=== PATIENT | female | born 1980 | race African-American/Black ===

== ENCOUNTER 2022-01-28 13:07 | Outpatient (CLI) | payer MEDICARE, OTHER | END 2022-01-28 13:08 | disposition home or self-care (01) | LOC: DTY/OP 13:07 | PROVIDERS: ATTEND Surgery | DX: E66.01 Morbid (severe) obesity due to excess calories (principal) | CPT/HCPCS: 97802 ==

== ENCOUNTER 2022-04-10 10:55 | Outpatient (CLI) | payer OTHER, MEDICAID ==
[2022-04-10 12:39] LABS: #Eosinphils 0.1 10x3/uL (0.0-0.5); #Monocytes 0.3 10x3/uL (0.0-1.1); #Neutrophils 2.4 10x3/uL (1.5-8.4); %Basophils 0.4 % (0.0-2.0); %Eosinophils 1.7 % (0.0-6.0); %Neutrophils 43.5 % (40.0-75.0); Hemoglobin 13.1 g/dL (12.0-15.5); Mean Corpuscular HGB CONC 32.6 g/dL (32.0-36.0); Mean Corpuscular Hemoglobin 28.7 pg (27.0-33.0); Mean Platelet Volume 12.1 fl (7.4-10.4); Platelet Count 248 10x3/uL (150-450); RBC Distribution Width 13.3 % (11.5-14.5); Red Blood Cell (RBC) Count 4.57 10x6/uL (3.90-5.03); White Blood Cell (WBC) Count 5.4 10x3/uL (3.5-10.5)
[2022-04-10 13:08] LABS: ALT (SGPT) 30 U/L (8-55); AST (SGOT) 27 U/L (5-34); Albumin 3.9 g/dL (3.5-5.0); Alkaline Phosphatase 57 U/L (40-110); Anion Gap 11 mmol/L (10-20); BUN (Urea Nitrogen) 11 mg/dL (7.0-18.7); Bilirubin, Total 0.4 mg/dL (0.2-1.2); Calc. Creatinine Clearance 0 mL/min (70-130); Calcium 9.4 mg/dL (7.8-10.44); Carbon Dioxide 27 mmol/L (22-29); Chloride 102 mmol/L (98-107); Estimated GFR 112; Globulin 3.5 g/dL (2.4-3.5); Glucose 87 mg/dL (70-105); Potassium 4.4 mmol/L (3.5-5.1); Protein, Total 7.4 g/dL (6.0-8.3); Sodium 136 mmol/L (136-145)
[2022-04-10 14:17] LABS: Hemoglobin A1c 5.6 % (4.0-6.0)
== END 2022-04-10 10:56 | disposition home or self-care (01) ==
LOC: LABBT 10:55
PROVIDERS: ATTEND Surgery
DX: Z01.818 Encounter for other preprocedural examination (principal); E66.01 Morbid (severe) obesity due to excess calories; Z20.822 Contact with and (suspected) exposure to COVID-19
CPT/HCPCS: 71046; 80053; 83036; 85025; 87811; 93005; 93010

== ENCOUNTER 2022-04-10 11:15 | Inpatient (IN) | payer OTHER, MEDICAID ==
[2022-04-14 09:59] VITALS: BMI 55.7
[2022-04-15] MEDS ORDERED: Heparin 5,000 UNITS/ML VIAL ONE (06:14)
[2022-04-15] MEDS ORDERED: fentaNYL Citrate/PF 100 MCG/2 ML SYRINGE ONE (06:52)
[2022-04-15] MEDS ORDERED: Bupivacaine/Epinephrine 0.25% 30 ML VIAL ONE (06:53)
[2022-04-15] MEDS ORDERED: CEFAZOLIN 2 GM VIAL ONE (07:23)
[2022-04-15] MEDS ORDERED: Sodium Chloride 0.9% 100 ML ONE (07:23)
[2022-04-15] MEDS ORDERED: Succinylcholine 200 MG/10 ml SYRINGE FS ONE (07:30)
[2022-04-15] MEDS ORDERED: Lidocaine 1% PF 5 ML VIAL ONE (07:30)
[2022-04-15] MEDS ORDERED: Neostigmine Methylsulfate 3 MG/3 ML SYRINGE ONE (07:30)
[2022-04-15] MEDS ORDERED: Ondansetron PF 4 MG/2 ML Vial ONE (07:30)
[2022-04-15] MEDS ORDERED: PROPOFOL 200 MG/20 ML VIAL ONE (07:30)
[2022-04-15] MEDS ORDERED: Dexamethasone 20 MG/5 ML VIAL ONE (07:30)
[2022-04-15] MEDS ORDERED: Rocuronium Bromide 10 MG/ML (10ML VIAL) ONE (07:30)
[2022-04-15] MEDS ORDERED: Phenylephrine 10 MG/ML VIAL ONE (07:30)
[2022-04-15] MEDS ORDERED: Glycopyrrolate 0.2 MG/ML 5 ML SYRINGE ONE (07:30)
[2022-04-15] MEDS ORDERED: Morphine 4 MG/ML VIAL SLOW IVP PRN (08:53)
[2022-04-15] MEDS ORDERED: Dextrose 50% Abboject 50 ML SYRINGE SLOW IVP PRN (08:53)
[2022-04-15] MEDS ORDERED: Morphine 2 MG/ML VIAL SLOW IVP PRN (08:53)
[2022-04-15] MEDS ORDERED: hydrALAZINE 20 MG/ML VIAL SLOW IVP PRN (08:53)
[2022-04-15] MEDS ORDERED: Dextrose 5% in Water 1,000 ML IV PRN (08:53)
[2022-04-15] MEDS ORDERED: Ondansetron PF 4 MG/2 ML Vial IVP PRN (08:53)
[2022-04-15] MEDS ORDERED: diphenhydrAMINE 50 MG/ML VIAL IVP PRN (08:53)
[2022-04-15] MEDS ORDERED: Promethazine HCl 25 MG/ML VIAL IM PRN ×2 (08:53→09:00)
[2022-04-15] MEDS ORDERED: Fentanyl 100 MCG/2 ML VIAL ONE ×2 (08:57→09:19)
[2022-04-15] MEDS ORDERED: Promethazine HCl 25 MG/ML VIAL ONE (08:58)
[2022-04-15] MEDS ORDERED: HYDROmorphone 2 MG/ML VIAL SLOW IVP PRN (09:00)
[2022-04-15] MEDS ORDERED: Promethazine HCl 25 MG/ML VIAL IVPB PRN (09:00)
[2022-04-15] MEDS ORDERED: ceFAZolin 2 GM/Dextrose 50 ML 2 GM in Premix Bag 1 BAG IVPB SCH (09:00)
[2022-04-15] MEDS ORDERED: D5 1/2 NS w/20 mEq KCL 1,000 ML ONE (09:19)
[2022-04-15] MEDS: D5 1/2 NS w/20 mEq KCL 1,000 ML IV SCH ×3 (09:21→21:24)
[2022-04-15] MEDS ORDERED: Ketorolac Tromethamine 30 MG/ML VIAL ONE (09:45)
[2022-04-15] MEDS: Ketorolac Tromethamine 30 MG/ML VIAL IVP SCH ×3 (09:47→23:57)
[2022-04-15] MEDS ORDERED: HYDROmorphone 0.5 MG/0.5 ML SYRINGE ONE ×3 (09:59→11:20)
[2022-04-15] MEDS ORDERED: Labetalol HCl 100 MG/20 ML VIAL ONE (10:51)
[2022-04-15] MEDS: Pantoprazole 40 MG VIAL IVP SCH (13:11)
[2022-04-15] MEDS: Enoxaparin Sodium 40 MG/0.4 ML SYRINGE SC SCH (13:11)
[2022-04-15] MEDS: CEFAZOLIN 2 GM in Sodium Chloride 0.9% 100 ML IVPB SCH ×2 (13:14→21:25)
[2022-04-15] MEDS: Hydrocodone-Acetamin 15 ML UDCUP PO PRN ×2 (17:35→21:25)
[2022-04-16] MEDS: D5 1/2 NS w/20 mEq KCL 1,000 ML IV SCH ×2 (04:32→12:39)
[2022-04-16] MEDS: Ketorolac Tromethamine 30 MG/ML VIAL IVP SCH ×3 (04:33→18:21)
[2022-04-16] MEDS: Hydrocodone-Acetamin 15 ML UDCUP PO PRN ×2 (04:33→10:20)
[2022-04-16 05:55] LABS: Anion Gap 13 mmol/L (10-20); BUN (Urea Nitrogen) 9 mg/dL (7.0-18.7); Calc. Creatinine Clearance 227 mL/min (70-130); Calcium 8.9 mg/dL (7.8-10.44); Carbon Dioxide 21 mmol/L (22-29); Chloride 108 mmol/L (98-107); Estimated GFR 101; Glucose 116 mg/dL (70-105); Potassium 4.3 mmol/L (3.5-5.1); Sodium 138 mmol/L (136-145)
[2022-04-16 06:47] LABS: Band 1 % (5-11); Hemoglobin 12.5 g/dL (12.0-16.0); Lymphocytes 22 % (21-51); MDiff Complete? YES; Mean Corpuscular HGB CONC 32.2 g/dL (32.0-36.0); Mean Corpuscular Hemoglobin 29.2 pg (27.0-31.0); Mean Corpuscular Volume 90.6 fL (78.0-98.0); Mean Platelet Volume 9.6 fL (7.4-10.4); Monocytes 4 % (0-10); Neutrophil 73 % (42-75); Platelet Count 230 thou/uL (130-400); RBC Distribution Width 12.7 % (11.5-14.5); Red Blood Cell (RBC) Count 4.28 mill/uL (4.20-5.40); White Blood Cell (WBC) Count 12.7 thou/uL (4.8-10.8)
[2022-04-16] MEDS: Enoxaparin Sodium 40 MG/0.4 ML SYRINGE SC SCH (09:57)
[2022-04-16] MEDS: Pantoprazole 40 MG VIAL IVP SCH (09:58)
[2022-04-16 15:52] VITALS: BP 143/86; TEMP 98.9
== END 2022-04-16 18:22 | disposition home or self-care (01) | DRG 621 ==
LOC: SURG A 04-15 05:33 → SURG B 04-15 12:58
PROVIDERS: ADMIT Surgery; ATTEND Surgery
PROC: 0DB64Z3 Excision of Stomach, Percutaneous Endoscopic Approach, Vertical (ICD-10-PCS; principal; 2022-04-15)
DX: E66.01 Morbid (severe) obesity due to excess calories (principal); Z68.43 Body mass index [BMI] 50.0-59.9, adult; F17.210 Nicotine dependence, cigarettes, uncomplicated
CPT/HCPCS: 36415; 80048; 85025; 88307; C9113; J0360; J0690; J1100; J1170; J1644; J1650; J1885; J2270; J2370; J2405; J2550; J2704; J3010; J3480; J3490; U0003; U0005

== ENCOUNTER 2022-04-13 09:16 | Outpatient (CLI) | payer OTHER, MEDICAID | END 2022-04-13 09:17 | disposition home or self-care (01) | LOC: LABBT 09:16 | PROVIDERS: ATTEND Surgery | DX: Z20.822 Contact with and (suspected) exposure to COVID-19 (principal) | CPT/HCPCS: U0003; U0005 ==

== ENCOUNTER 2022-06-23 12:55 | Emergency (ER) | payer OTHER ==
[~2022-06-23 12:55] MED LIST: Iopamidol-370 76% 500 ML 1 ML ONE
[2022-06-23 13:49] LABS: Mean Corpuscular HGB CONC 31.6 g/dL (32.0-36.0); Mean Corpuscular Hemoglobin 28.5 pg (27.0-31.0); Mean Corpuscular Volume 90.2 fl (78.0-98.0); Platelet Count 177 thou/uL (130-400); RBC Distribution Width 13.1 % (11.5-14.5); Red Blood Cell (RBC) Count 4.92 mill/uL (4.20-5.40); White Blood Cell (WBC) Count 4.7 thou/uL (4.8-10.8)
[2022-06-23 13:57] LABS: BHCG - Serum Negative (NEGATIVE); Pregs Control Background? CLEAR/WHITE (CLR/WHITE); Pregs Control Bar Appear? YES (CONTROL BAR)
[2022-06-23 14:06] LABS: ALT (SGPT) 17 U/L (8-55); AST (SGOT) 18 U/L (5-34); Albumin 3.8 g/dL (3.5-5.0); Alkaline Phosphatase 69 U/L (40-110); Anion Gap 12 mmol/L (10-20); BUN (Urea Nitrogen) 13 mg/dL (7.0-18.7); Bilirubin, Total 0.4 mg/dL (0.2-1.2); Calc. Creatinine Clearance 0 mL/min (70-130); Calcium 9.5 mg/dL (7.8-10.44); Carbon Dioxide 25 mmol/L (22-29); Chloride 105 mmol/L (98-107); Estimated GFR 106; Globulin 3.6 g/dL (2.4-3.5); Glucose 85 mg/dL (70-105); Potassium 3.8 mmol/L (3.5-5.1); Protein, Total 7.4 g/dL (6.0-8.3); Sodium 138 mmol/L (136-145)
[2022-06-23 14:09] LABS: Eosinophils 2 % (0-10); Lymphocytes 30 % (21-51); MDiff Complete? YES; Monocytes 3 % (0-10); Neutrophil 57 % (42-75); Platelet Morphology Comment Appears Adequate; Polychromasia SLIGHT = 2-3 cells (100X) (0-2/hpf); Reactive Lymphocytes 7 % (0-10)
== END 2022-06-23 15:41 | disposition home or self-care (01) ==
LOC: ERS 12:55
DX: R10.13 Epigastric pain (principal); R55 Syncope and collapse; Z87.891 Personal history of nicotine dependence
CPT/HCPCS: 36415; 74177; 80053; 83690; 83735; 84484; 84703; 85025; 93005; Q9967

== ENCOUNTER 2023-04-30 13:24 | Emergency (ER) | payer OTHER ==
[~2023-04-30 13:24] MED LIST changes: -Iopamidol-370 76% 500 ML 1 ML ONE; +Iopamidol-370 76% 500 ML MDV (1 ML CHARGE) ONE
[2023-04-30] MEDS ORDERED: fentaNYL 50 mcg/mL 1 mL Vial ONE (13:35)
[2023-04-30 13:50] LABS: #Eosinphils 0.2 thou/uL (0.0-0.7); #Monocytes 0.3 thou/uL (0.11-0.59); #Neutrophils 2.3 thou/uL (1.40-6.50); %Basophils 0.4 % (0.0-1.0); %Eosinophils 3.2 % (0.0-10.0); %Lymphocytes 38.8 % (21.0-51.0); %Monocytes 7.3 % (0.0-10.0); %Neutrophils 50.1 % (42.0-75.0); Hematocrit 40.6 % (36.0-47.0); Hemoglobin 13.5 g/dL (12.0-16.0); Mean Corpuscular HGB CONC 33.3 g/dL (32.0-36.0); Mean Corpuscular Hemoglobin 28.8 pg (27.0-31.0); Mean Corpuscular Volume 86.6 fl (78.0-98.0); Mean Platelet Volume 11.1 fL (7.4-10.4); Platelet Count 233 10x3/uL (130-400); RBC Distribution Width 13.7 % (11.5-14.5); Red Blood Cell (RBC) Count 4.69 mill/uL (4.20-5.40); White Blood Cell (WBC) Count 4.7 10x3/uL (4.8-10.8)
[2023-04-30 14:02] LABS: BHCG - Serum Negative (NEGATIVE); Pregs Control Background? CLEAR/WHITE (CLR/WHITE); Pregs Control Bar Appear? YES (CONTROL BAR)
[2023-04-30 14:13] LABS: ALT (SGPT) 11 U/L (8-55); AST (SGOT) 13 U/L (5-34); Albumin 3.7 g/dL (3.5-5.0); Alkaline Phosphatase 75 U/L (40-110); Anion Gap 10 mmol/L (10-20); BUN (Urea Nitrogen) 11 mg/dL (7.0-18.7); Bilirubin, Total 0.2 mg/dL (0.2-1.2); Calc. Creatinine Clearance 0 mL/min (70-130); Carbon Dioxide 23 mmol/L (22-29); Chloride 110 mmol/L (98-107); Estimated GFR 89; Globulin 3.4 g/dL (2.4-3.5); Glucose 106 mg/dL (70-105); Potassium 3.8 mmol/L (3.5-5.1); Protein, Total 7.1 g/dL (6.0-8.3); Sodium 139 mmol/L (136-145)
[2023-04-30] MEDS ORDERED: Ketorolac Tromethamine 30 MG/ML VIAL ONE (14:52)
== END 2023-04-30 16:15 | disposition home or self-care (01) ==
LOC: ERS 13:24
DX: S43.401A Unspecified sprain of right shoulder joint, initial encounter (principal); V89.0XXA Person injured in unspecified motor-vehicle accident, nontraffic, initial encounter; Z87.891 Personal history of nicotine dependence
CPT/HCPCS: 70450; 71045; 71260; 72125; 73030; 74177; 80053; 84703; 85025; 93005; J3010; 96374; 96375; G0390; J1885; Q9967